=== PATIENT | male | born 1980 | race Caucasian/White ===

== ENCOUNTER 2025-03-29 23:11 | Emergency (ER) | payer MEDICAID, SELFPAY ==
[2025-03-29 23:13] VITALS: BMI 30.4
[2025-03-29 23:26] VITALS: BP 165/92; PULSE 88; RESP 20; TEMP 37.1; O2SAT 96
--- NOTE | 2025-03-29 23:29 | XR_ITS ---
Examination: CT abdomen with intravenous contrast CT pelvis with intravenous contrast 2-D coronal reconstructions 2-D sagittal reconstructions Date and time of exam: March 30, 2025, 0134 hours INDICATIONS: Right lower abdominal pain beginning this morning. CTDI: vol (mGy) 9.29 DLP: (mGycm) 590 Technique: Multiple axial sections of the abdomen and pelvis have been obtained. 64 slice high-resolution scanner used. 3 mm axial sections have been obtained, post intravenous injection 30 cc [id number] 2-D sagittal, coronal reconstructions obtained. Low dose protocols were performed. One or more of the following dose reduction techniques were used; automated exposure control, adjustment of the mA and/or KV according to patient size, use of iterative reconstruction technique. Findings: Fatty infiltration throughout the liver no focal liver or splenic lesions No gallstones No pancreatic or adrenal mass Mild right hydronephrosis, 5 mm mid right ureteral calculus Aorta normal size No bowel obstruction Normal appendix No bladder mass or bladder calculi Negative for prostatomegaly The Denis structures are intact IMPRESSION: Mild right hydronephrosis secondary to 5 mm mid right ureteral calculus
--- NOTE | 2025-03-29 23:31 | PD.EDABDPN ---
ED Abdominal Pain RME/HPI General Chief Complaint: Abdominal Pain Stated complaint: RLQ ABD PAIN Time seen by provider: 03/29/25 23:28 Arrival date/time: 03/29/25 23:11 44M with no significant PMH presents to ED with 1 day of sudden RLQ pain and N/V. No gross hematuria and dysuria. Limitations: no limitations Related Data Previous Rx's ?Medication ?Instructions ?Recorded hydrocodone 5 mg-acetaminophen 325 1 tab PO BID PRN pain #10 tabs 03/30/25 mg tablet ibuprofen 800 mg tablet 800 mg PO TID PRN pain #30 tabs 03/30/25 ondansetron 4 mg disintegrating 4 mg PO Q8H PRN nausea and 03/30/25 tablet vomiting #10 tabs tamsulosin 0.4 mg capsule (Flomax) 0.4 mg PO QDAY 14 days #14 caps 03/30/25 Allergies Allergy/AdvReac Type Severity Reaction Status Date / Time No Known Allergies Allergy Verified 03/29/25 23:17 Review of Systems Review of Systems Systems Reviewed: All systems reviewed, normal except as documented Gastrointestinal Gastrointestinal: Reports as per HPI, Reports abdominal pain, Reports nausea and Reports vomiting Past Medical History Social History SMOKING STATUS: Never smoker ED Exam General Limitations: Present no limitations General appearance: Present alert and in no apparent distress Head Head exam: Present atraumatic Neck Neck exam: Present normal inspection, full ROM and trachea midline Chest Chest inspection: Present normal inspection and symmetric chest wall rise Abdominal Exam Abdominal exam: Present soft Abdominal tenderness: Present RLQ and mild Neurological Exam Neurological exam: Present alert and oriented X3 Psychiatric Psychiatric exam: Present normal affect and normal mood Skin Skin exam: Present warm, dry, intact and normal color Course Quality Measures none Orders Category Date Time Status CT Screening NOW Care 03/29/25 23:30 Completed Insert IV NOW Care 03/29/25 23:[address] abdomen pelvis w con Stat Exams 03/29/25 23:29 Completed Alcohol, Blood Medical Stat Lab 03/29/25 23:44 Completed BMP [Basic Metabolic Panel] Stat Lab 03/30/25 04:58 Completed CBC Stat Lab 03/29/25 23:44 Completed CMP [Comprehensive Metabolic Panel] Stat Lab 03/29/25 23:44 Completed Drug Screen,Urine Stat Lab 03/29/25 23:44 Completed Lipase Stat Lab 12/02/25 23:44 Completed Urinalysis, C/S if Indicated Stat Lab 03/29/25 23:44 Completed Ketorolac Inj [Toradol Inj] Med 03/30/25 02:08 Discontinued 30 mg .ROUTE .STK-MED ONE Ketorolac Inj [Toradol Inj] Med 03/30/25 06:30 Discontinued 30 mg IM X1 ONE Ketorolac Inj [Toradol Inj] Med 03/30/25 02:05 Discontinued 30 mg IVP X1 ONE Morphine* Inj Med 03/29/25 23:29 Discontinued 4 mg IV X1 ONE Ondansetron Inj [Zofran Inj] Med 03/29/25 23:29 Discontinued 4 mg IVP X1 ONE Sodium Chloride 0.9% 1000 ml [Ns] 1,000 ml Med 03/30/25 00:29 Discontinued IV 999 mls/hr Sodium Chloride 0.9% 1000 ml [Ns] 1,000 ml Med 03/30/25 03:53 Discontinued IV 999 mls/hr Tamsulosin HCl [Flomax] Med 03/30/25 03:53 Discontinued 0.4 mg PO X1 ONE Vital Signs Vital signs: Vital Signs Temperature 98.7 F 03/29/25 23:26 Pulse Rate 88 03/29/25 23:26 Respiratory Rate 20 03/29/25 23:26 Blood Pressure 165/92 H 03/29/25 23:26 Pulse Oximetry (%) 96 03/29/25 23:26 Oxygen Delivery Method Room Air 03/29/25 23:26 O2 at 96% on RA and WNLs Abdominal Pain MDM MDM Narrative MDM Narrative:: 44M with no significant PMH presents to ED with 1 day of sudden RLQ pain and N/V. No gross hematuria and dysuria. Physical exam reveals mild RLQ tenderness. Patient is afebrile, alert, but mildly diaphoretic (patient has just been throwing up). CT Telerad reveals 5 mm R-sided ureteral stone. CMP unremarkable except for Cr of 1.6. Moderate leukocytosis. UA only some RBCs. Pain much better with Toradol. After 2 L NS, repeat Cr shows reduced to 1.5. Care signed out to Deppen [employer] pending repeat Cr and dispo. Patient was eventually discharged. Patient data External records reviewed:: None Clinical information provided by:: patient Social determinants that could affect healthcare access:: none Patient has the following chronic illnesses:: none How is presenting disease/condition affected by chronic disease/condition?: no chronic disease Evaluation data The following diagnostics were reviewed and interpreted by me:: lab results and radiology exam(s) Lab and/or radiology exams considered but not ordered:: ordered Interpretation Summary: above Medications / Prescriptions Medications or Prescriptions considered but not ordered:: ordered Medication administrations:: Medication Administration History Discontinued Medications Sodium Chloride (Ns) 1,000 mls @ 999 mls/hr IV .Q1H1M ONE Stop: 03/30/25 01:29 Last Infusion: 03/30/25 01:44 Dose: Infused Documented By: Admin: 03/30/25 00:37 Dose: 999 mls/hr Documented By: CVL Sodium Chloride (Ns) 1,000 mls @ 999 mls/hr IV .Q1H1M ONE Stop: 03/30/25 04:53 Last Infusion: 03/30/25 04:54 Dose: Infused Documented By: Admin: 03/30/25 03:40 Dose: 999 mls/hr Documented By: CVL Ketorolac Tromethamine (Ketorolac Inj 30 Mg/Ml Vial) Confirm Administered Dose 30 mg .ROUTE .STK-MED ONE Stop: 03/30/25 02:09 Last Admin: 03/30/25 03:51 Dose: Not Given Documented By: CVL Non-Admin Reason: Duplicate Medication on eMAR Ketorolac Tromethamine (Ketorolac Inj 30 Mg/Ml Vial) 30 mg IVP X1 ONE Stop: 03/30/25 02:06 Last Admin: 03/30/25 02:07 Dose: 30 mg Documented By: CVL Ketorolac Tromethamine (Ketorolac Inj 30 Mg/Ml Vial) 30 mg IM X1 ONE Stop: 03/30/25 06:31 Last Admin: 03/30/25 06:39 Dose: 30 mg Documented By: CVL Morphine Sulfate (Morphine Sulf Inj 4 Mg/Ml Vial) 4 mg IV X1 ONE Stop: 03/29/25 23:30 Last Admin: 03/30/25 00:06 Dose: 4 mg Documented By: CVL Comments: iv lock at right ac, 1 min pushed. Ondansetron HCl (Ondansetron Inj 2 Mg/Ml Inj 2 Ml) 4 mg IVP X1 ONE; Protocol Stop: 03/29/25 23:30 Last Admin: 03/30/25 00:05 Dose: 4 mg Documented By: SUSAN Tamsulosin HCl (Tamsulosin Hcl 0.4 Mg Capsule) 0.4 mg PO X1 ONE Stop: 03/30/25 03:54 Last Admin: 03/30/25 04:07 Dose: 0.4 mg Documented By: SUSAN above Consultations Consultation(s) initiated? (list below): No Diagnosis Differential diagnosis abdominal pain: abdominal pain, acute appendicitis, calculus of kidney, constipation, diverticulitis, gastroenteritis, pancreatitis and small bowel obstruction Most likely diagnosis given after review of the tests above:: renal colic Admission Indicated Admission indicated?: not indicated Admission Request Was there a request for admission?: No Disposition Plan Disposition Plan: Discharge Discharge Attestation Discharge Attestation: The patient and all family members were given an opportunity to ask questions and understood the discharge instructions. Discharge instructions specifically effects, indications for sooner follow up or return to the emergency department, and the expected course of current diagnosis. Patient condition: Stable Discharge Plan Plan Patient Disposition: HOME (Self Care) Discharge Disposition comment: Stable Prescriptions/Referrals Prescriptions/Med Rec: New ibuprofen 800 mg tablet 800 mg PO TID PRN (Reason: pain) Qty: 30 0RF hydrocodone-acetaminophen 5-325 mg tablet 1 tab PO BID MDD 10 PRN (Reason: pain) Qty: 10 0RF tamsulosin [Flomax] 0.4 mg capsule 0.4 mg PO QDAY 14 Days Qty: 14 0RF ondansetron 4 mg tablet,disintegrating 4 mg PO Q8H PRN (Reason: nausea and vomiting) Qty: 10 0RF Referrals: No Primary/Family,Physician [Primary Care Provider] - In 1 week Problem List Clinical Impression: Renal colic Patient/Caregiver Discharge Instructions Education Materials: ED Kidney Stone w/ Colic Additional Instructions: Please follow up with your primary care doctor in the next 24-48hrs for any worsening symptoms return here immediately If your symptoms persist or worsen you must return for reevaluation Print Language: Malaysian Stand Alone Forms: Riana Award Info., Work/School Release, Patient Portal Info Letter PA/FRANCO Supervising Physician PA/FRANCO Supervising Physician: dr miller
[2025-03-29 23:51] LABS: Collection Type, Urine Clean Catch; Squamous Epithelial Cell,Urine 0 /hpf (0-5)
[2025-03-29 23:53] LABS: Basophils # (Auto) 0.1 Thou/mm3 (0.0-0.2); Basophils % (Auto) 0 % (0-2.5); Eosinophils # (Auto) 0.1 Thou/mm3 (0.0-0.5); Eosinophils % (Auto) 0 % (0-10); Hematocrit 43.4 % (41.0-53.0); Hemoglobin 14.7 g/dL (13.5-16.0); Immature Granulocytes Auto 0.05 Thou/mm3 (0.00-0.00); Lymphocytes # (Auto) 2.0 Thou/mm3 (1.0-4.8); Lymphocytes % (Auto) 13 % (10-50); Mean Corpuscular HGB Conc 33.9 g/dl (31.0-37.0); Mean Corpuscular Hemoglobin 28.7 pg (25.0-35.0); Mean Corpuscular Volume 85 fL (80-100); Monocytes # (Auto) 1.5 Thou/mm3 (0.0-0.8); Monocytes % (Auto) 10 % (0-12); Neutrophils # (Auto) 11.7 Thou/mm3 (1.8-7.7); Neutrophils % (Auto) 76 % (37-80); Nucleated Red Blood Cell # 0.00 Thou/mm3 (0.00-0.00); Nucleated Red Blood Cell % 0 /100 WBC (0); Platelet Count 243 Thou/mm3 (140-440); RDW Standard Deviation 37.4 fL (35.1-43.9); Red Blood Count 5.12 Miln/mm3 (4.50-5.90); White Blood Count 15.3 Thou/mm3 (3.8-10.6)
[2025-03-29 23:57] LABS: Bilirubin,Urine Negative (Negative); Blood,Urine 1+ (Negative); Clarity,Urine Clear (Clear/Hazy); Color,Urine Lt-Yellow (Lt Yel-Yel); Culture Indicated,Urine Not Indicated; Glucose, Urine Negative (Negative); Ketones,Urine Negative (Negative); Leukocyte Esterase,Urine Negative (Negative); Nitrite,Urine Negative (Negative); PH,Urine 6.0 (5.0-7.0); Protein,Urine Negative (Neg - Trace); RBC,Urine 10 /hpf (0-3); Specific Gravity,Urine 1.018 (1.001-1.035); Urobilinogen,Urine Negative mg/dL (0.0-1.0); WBC,Urine 1 /hpf (0-5)
[2025-03-30 00:03] LABS: Amphetamine/Methamp Scrn,U Negative (Negative); Barbiturate Screen,Urine Negative (Negative); Benzodiazepines Screen,Urine Negative (Negative); Benzoylecgonine Screen, Ur Negative (Negative); Fentanyl Screen,Urine Negative (Negative); Opiate Screen,Urine Negative (Negative); THC Screen,Urine Negative (Negative)
[2025-03-30] MEDS: ONDANSETRON INJ 2 MG/ML INJ 2 ML 4 MG IVP (00:05)
[2025-03-30] MEDS: MORPHINE SULF INJ 4 MG/ML VIAL IV (00:06)
[2025-03-30 00:25] LABS: Alanine Aminotransferase 65 U/L (10-49); Albumin, Serum 5.3 gm/dL (3.5-5.0); Albumin/Globulin Ratio 1.8 (1.2-2.2); Alcohol, Blood Medical < 3.0 mg/dL (0-10.0); Alkaline Phosphatase 65 U/L (46-116); Anion Gap 12 (7-16); Aspartate Amino Transferase 35 U/L (0-34); BUN/Creatinine Ratio 9 Ratio (12-20); Bilirubin,Total 0.6 mg/dL (0.3-1.2); Blood Urea Nitrogen 14 mg/dL (9-23); Calcium 9.9 mg/dL (8.3-10.6); Calcium (Corrected) 9.9 mg/dL (8.5-10.1); Carbon Dioxide 27.2 mMol/L (20.0-31.0); Chloride 101 mMol/L (98-107); Creatinine (Component) 1.6 mg/dL (0.6-1.3); Estimated Creatinine Clearance 64.4 mL/min (>60); Globulin 2.9 gm/dL (2.3-3.5); Glucose 116 mg/dL (74-106); Lipase 33 U/L (12-53); Osmolality,Calculated 280 (275-295); Potassium 3.8 mMol/L (3.4-5.1); Sodium 140 mMol/L (136-145); Total Protein 8.2 gm/dL (5.7-8.2); eGFR 54 See Note
[2025-03-30] MEDS: SODIUM CHLORIDE 0.9% 1000 ML 1,000 ML 999 ML IV ×2 (00:37→03:40)
[2025-03-30] MEDS: KETOROLAC INJ 30 MG/ML VIAL IVP (02:07)
--- NOTE | 2025-03-30 02:27 | PRELIM_ITS ---
CT scan of the abdomen and pelvis with intravenous contrast (axial sections with sagittal and coronal reformats) March 30, 2025 0134 hours Clinical History: RLQ pain Comparison: No prior study is available for comparison. Findings: The lung bases are clear. The liver, gallbladder, spleen, adrenal glands, pancreas and left kidney are unremarkable. Mild right hydroureteronephrosis with a 5 mm calculus in the mid ureter, image 140. The urinary bladder is normal. No free intraperitoneal air or fluid. The appendix is normal, best seen on image 162. Bowel caliber is normal. No renal calculi bilaterally. The abdominal wall is unremarkable. No acute osseous process. Impression: 5 mm calculus in the mid right ureter with mild hydroureteronephrosis. Report Electronically Signed By: Toi Mcmillan 03/30/2025 2:18:50 AM [EST]
[2025-03-30] MEDS: TAMSULOSIN HCL 0.4 MG CAPSULE PO (04:07)
[2025-03-30 06:18] LABS: Anion Gap 11 (7-16); BUN/Creatinine Ratio 9 Ratio (12-20); Blood Urea Nitrogen 13 mg/dL (9-23); Calcium 8.4 mg/dL (8.3-10.6); Carbon Dioxide 24.2 mMol/L (20.0-31.0); Chloride 106 mMol/L (98-107); Creatinine (Component) 1.5 mg/dL (0.6-1.3); Estimated Creatinine Clearance 68.7 mL/min (>60); Glucose 105 mg/dL (74-106); Osmolality,Calculated 281 (275-295); Potassium 4.0 mMol/L (3.4-5.1); Sodium 141 mMol/L (136-145); eGFR 59 See Note
[2025-03-30 06:28] VITALS: BP 129/86; PULSE 73; RESP 17; TEMP 36.9; O2SAT 96
[2025-03-30] MEDS: KETOROLAC INJ 30 MG/ML VIAL IM (06:39)
== END 2025-03-30 06:49 | disposition home or self-care (01) ==
PROVIDERS: Physician Assistant; Emergency Provider Emergency Medicine
DX: N20.1 Calculus of ureter (principal); D72.829 Elevated white blood cell count, unspecified
CPT/HCPCS: 36415; 74177; 80048; 80053; 80307; 80320; 81001; 83690; 85025; 96361; 96372; 96374; 96375; 99284; A4649; J1885; J2270; J2405; J7030; Q9967; A9270; G0480